=== PATIENT | female | born 1940 | race Caucasian/White ===

== ENCOUNTER 2016-12-02 04:36 | Emergency (ER) | payer MEDICARE, MEDICAID ==
[2016-12-02] MEDS ORDERED: Diphtheria,Pertussis(Acell),Tetanus Vaccine 0.5 ML SDV IM ONE (05:12)
--- NOTE | 2016-12-02 05:14 | EDM.PDOC ---
ED HPI GENERAL MEDICAL PROBLEM - General Stated Complaint: LACERATION ON FOREHEAD Time Seen by Provider: 12/02/16 04:36 Source of Information: Reports: Patient, Police History Limitations: Reports: No Limitations - History of Present Illness INITIAL COMMENTS - FREE TEXT/NARRATIVE: 76 y.o.w.f came to the ed after she fell onto her forehead while getting out of her bed to the bathroom. Pt came by the police because she did not find the way to the ED. Pt smokes daily and has COPD. No LOC. Pt noticed some blood at here forehead. As she arrived here in the ed, the bleeding stopped. Pt denied other acute medical issues. Onset: Today Onset Date: 12/02/16 Onset Time: 02:00 Duration: Minutes:, Getting Worse Location: Reports: Head, Face Quality: Reports: Burning Severity: Mild Improves with: Reports: Cold Therapy, Rest Worsens with: Reports: Movement Context: Reports: Trauma Associated Symptoms: Reports: No Other Symptoms ED ROS GENERAL - Review of Systems Review Of Systems: See Below Constitutional: Reports: No Symptoms HEENT: Reports: No Symptoms Respiratory: Reports: Other (has COPD, refuses Tx) Cardiovascular: Reports: No Symptoms Endocrine: Reports: No Symptoms GI/Abdominal: Reports: No Symptoms : Reports: No Symptoms Musculoskeletal: Reports: No Symptoms Skin: Reports: Wound (scalp/forehead) Neurological: Reports: No Symptoms Psychiatric: Reports: No Symptoms Hematologic/Lymphatic: Reports: No Symptoms Immunologic: Reports: No Symptoms ED EXAM, SKIN/RASH Exam: See Below Exam Limited By: No Limitations General Appearance: Alert, WD/WN, No Apparent Distress Eye Exam: Bilateral Eye: Normal Inspection Ears: Normal External Exam, Normal Canal Nose: Normal Inspection, Normal Mucosa, No Blood Throat/Mouth: Normal Inspection, Normal Lips Head: Other (full thickness LAC forehead/capo) Neck: Normal Inspection, Supple, Non-Tender, Full Range of Motion Respiratory/Chest: No Respiratory Distress, Wheezing, Prolonged Expiration (pt refused Tx) Cardiovascular: Normal Peripheral Pulses, Regular Rate, Rhythm, No Edema, No Gallop Peripheral Pulses: 1+: Femoral (L), Femoral (R) GI/Abdominal: Normal Bowel Sounds, Soft, Non-Tender (Female) Exam: Deferred Rectal (Female) Exam: Deferred Back Exam: Normal Inspection, Full Range of Motion Extremities: Normal Inspection, Normal Range of Motion, Non-Tender Neurological: Alert, Oriented, CN II-XII Intact, Normal Cognition, Normal Gait Psychiatric: Normal Affect, Normal Mood Skin: Warm, Dry, Other (Laceration forehead/scalp) Location, Skin: Head, Face Lymphatic: No Adenopathy ED SKIN PROCEDURES - Laceration/Wound Repair Middle Forehead Lac/Wound length In cm: 5 Appearance: Subcutaneous, Linear, Clean Distal NVT: Neuro & Vascular Intact, No Tendon Injury Anesthetic Type: Local Local Anesthesia - Lidocaine (Xylocaine): 2% Plain Local Anesthetic Volume: 4cc Skin Prep: Providone-Iodine (Betadine) Exploration/Debridement/Repair: Wound Explored, In a Bloodless Field, Explored to Base, No Foreign Material Found Closed with: [place] # of Sutures: 15 Suture Type: Interrupted Tetanus Status Addressed: Other (has received a TD booster at this visit.) Complications: No Course - Vital Signs Text/Narrative:: 76 y.o.w.f came to the ed after she fell onto her forehead while getting out of her bed to the bathroom. Pt came by the police because she did not find the way to the ED. Pt smokes daily and has COPD. No LOC. Pt noticed some blood at here forehead. As she arrived here in the ed, the bleeding stopped. Pt denied other acute medical issues. PE: Scalp/forehead LAC, exp. wheezes Imaging: not indicated Procedure: Please see note above Impression: Scalp Laeration, COPD Tx: Wound repair, Pt refused Tx of COPD Reexam: Improved Plan: D/C with instructions - Orders/Labs/Meds Orders: Active Orders 24 hr Category Date Time Status Vaccines to be Administered [RC] PER UNIT ROUTINE Care 12/02/16 05:12 Ordered Meds: Medications Discontinued Medications Generic Name Dose Route Start Last Admin Trade Name Freq PRN Reason Stop Dose Admin Diphtheria/Tetanus/Acell Pertussis 0.5 ml 12/02/16 05:12 12/02/16 05:30 Adacel IM 12/02/16 05:13 0.5 ml .ONCE ONE Administration Departure - Departure Time of Disposition: 05:16 Disposition: Home, Self-Care 01 Condition: Good Clinical Impression: Laceration of head Qualifiers: Encounter type: initial encounter Location of open wound of head: scalp Foreign body presence: without foreign body Qualified Code(s): S01.01XA - Laceration without foreign body of scalp, initial encounter - Discharge Information Referrals: PCP,Not In Area [Primary Care Provider] - Additional Instructions: Please apply pressure and ICE to affected area for next 24 hours, please come back to the ed this tuesday, please come back if your symptoms get worse acutely. - My Orders Last 24 Hours: My Active Orders 12/02/16 05:12 Vaccines to be Administered [RC] PER UNIT ROUTINE - Assessment/Plan Last 24 Hours: My Active Orders 12/02/16 05:12 Vaccines to be Administered [RC] PER UNIT ROUTINE
[2016-12-02 05:42] VITALS: BP 159/87
== END 2016-12-02 05:35 | disposition home or self-care (01) ==
LOC: FB.ED 04:36
DX: S01.81XA Laceration without foreign body of other part of head, initial encounter (principal); W19.XXXA Unspecified fall, initial encounter; Y92.009 Unspecified place in unspecified non-institutional (private) residence as the place of occurrence of the external cause
CPT/HCPCS: 12013; 90471; 90715; 99282; 99283

== ENCOUNTER 2016-12-03 10:51 | Emergency (ER) | payer MEDICARE, MEDICAID ==
[2016-12-03] MEDS ORDERED: Bacitracin/Neomycin/Polymyxin B Oint 0.9 GM U/D Packet TOP STA (11:02)
--- NOTE | 2016-12-03 11:09 | EDM.PDOC ---
ED HPI GENERAL MEDICAL PROBLEM - General Stated Complaint: HEAD INJURY Time Seen by Provider: 12/03/16 10:51 Source of Information: Reports: Patient, Family - History of Present Illness INITIAL COMMENTS - FREE TEXT/NARRATIVE: 76 years old w f came to the ed for wound check. wound repair was performed on . there ie no bleed, no tenderness, no redness, Pt denies dizziness, lightheadedness or any other acute medical issues. Onset: Unknown/Unsure Onset Date: 12/01/16 Onset Time: 04:00 Duration: Day(s): Location: Reports: Head, Face Quality: Reports: Dull Improves with: Reports: Other (neosporine) Context: Reports: Trauma (fall.) Associated Symptoms: Reports: No Other Symptoms - Related Data Allergies Allergy/AdvReac Type Severity Reaction Status Date / Time morphine Allergy Other Verified 12/02/16 06:24 Home Meds: Home Meds . [Unable to Verify Home Med List] 12/02/16 [History] Past Medical History Cardiovascular History: Reports: Pacemaker Respiratory History: Reports: COPD Musculoskeletal History: Reports: Fibromyalgia Endocrine/Metabolic History: Reports: Other (See Below) Other Endocrine/Metabolic History: Patient denies having diabetes. Social & Family History - Tobacco Use Smoking Status *Q: Current Every Day Smoker Years of Tobacco use: 50 Packs/Tins Daily: 0.5 ED ROS GENERAL - Review of Systems Review Of Systems: See Below Constitutional: Reports: No Symptoms HEENT: Reports: No Symptoms Respiratory: Reports: No Symptoms Cardiovascular: Reports: No Symptoms Endocrine: Reports: No Symptoms GI/Abdominal: Reports: No Symptoms : Reports: No Symptoms Musculoskeletal: Reports: No Symptoms Skin: Reports: No Symptoms, Wound (mid forehead/capo) Neurological: Reports: No Symptoms Psychiatric: Reports: No Symptoms Hematologic/Lymphatic: Reports: No Symptoms Immunologic: Reports: No Symptoms ED EXAM, SKIN/RASH Exam: See Below Exam Limited By: No Limitations General Appearance: Alert, WD/WN, No Apparent Distress Eye Exam: Bilateral Eye: Normal Inspection Ears: Normal External Exam, Normal Canal Nose: Normal Inspection, Normal Mucosa, No Blood Throat/Mouth: Normal Inspection, Normal Lips Head: Normocephalic, Other (s/p wound repair 12/01/2016, well healing surgical wound, no erythema, no tenderness) Neck: Normal Inspection, Supple, Non-Tender Respiratory/Chest: Lungs Clear, Wheezing (pt refused Tx), Prolonged Expiration Cardiovascular: Normal Peripheral Pulses Peripheral Pulses: 2+: Femoral (L), Femoral (R) GI/Abdominal: Normal Bowel Sounds (Female) Exam: Deferred Rectal (Female) Exam: Deferred Back Exam: Normal Inspection Extremities: Normal Inspection Neurological: Alert, Oriented, CN II-XII Intact, Normal Cognition, Normal Gait Psychiatric: Normal Affect, Normal Mood Skin: Warm, Dry, Wound/Incision (well healing wound mid forehead/capo s/p repair 12/01/2016) Lymphatic: No Adenopathy Course - Vital Signs Text/Narrative:: 76 years old w f came to the ed for wound check. wound repair was performed on . there ie no bleed, no tenderness, no redness, Pt denies dizziness, lightheadedness or any other acute medical issues. PE: Well healing wound mif forehead/scalp Impression: Wound check Tx: Neosporine to wound Reexam: Improved Plan: D/C to home - Orders/Labs/Meds Meds: Medications Discontinued Medications Generic Name Dose Route Start Last Admin Trade Name Freq PRN Reason Stop Dose Admin Neomycin/Polymyxin/Bacitracin 1 each 12/03/16 11:02 Triple Antibiotic Oint TOP 12/03/16 11:03 ONETIME STA Departure - Departure Time of Disposition: 11:14 Disposition: Home, Self-Care 01 Condition: Good Clinical Impression: Visit for wound check - Discharge Information Referrals: PCP,None [Primary Care Provider] - Additional Instructions: Please apply any Tripleantibiotics to wound twice daily, please f/u Stable removal in 10 days, please come back if your symptoms get worse acutely.
[2016-12-03 11:36] VITALS: BP 128/64
== END 2016-12-03 11:19 | disposition home or self-care (01) ==
LOC: FB.ED 10:51
DX: S01.81XD Laceration without foreign body of other part of head, subsequent encounter (principal); J44.9 Chronic obstructive pulmonary disease, unspecified; F17.210 Nicotine dependence, cigarettes, uncomplicated; Z88.5 Allergy status to narcotic agent; Z95.0 Presence of cardiac pacemaker; W06.XXXD Fall from bed, subsequent encounter
CPT/HCPCS: 99282

== ENCOUNTER 2021-01-16 20:13 | Emergency (ER) | payer MEDICARE, MEDICAID ==
--- NOTE | 2021-01-16 23:00 | EDM.PDOC ---
ED HPI GENERAL MEDICAL PROBLEM - General Chief Complaint: Abdominal Pain Stated Complaint: Abdominal Pain Time Seen by Provider: 01/16/21 21:00 Source of Information: Reports: Patient - History of Present Illness INITIAL COMMENTS - FREE TEXT/NARRATIVE: 80-year-old lady with an extensive and significant past medical history came to the emergency department for evaluation of abdominal pain. She states that she had endoscopy performed on 01/07/2021 and has had increasing pain ever since. It is difficult to communicate with her because she is hard of hearing but she states that the abdominal pain has gotten to the point where it is so severe that she cannot rest or sleep well. She describes the pain at different times in every quadrant. She states that she came to the emergency department because the nurses that worked in the facility where she had the endoscopy told her that she should come immediately because of her symptoms. Of her extensive past medical history review of systems is difficult because she answers yes to almost everything. - Related Data Allergies Allergy/AdvReac Type Severity Reaction Status Date / Time fluoxetine [From Prozac] Allergy Cannot Verified 01/16/21 23:07 Remember heparin Allergy Cannot Verified 01/16/21 23:06 Remember morphine Allergy Cannot Verified 01/16/21 20:53 Remember nortriptyline Allergy Cannot Verified 01/16/21 23:07 Remember oxycodone [From OxyContin] Allergy Cannot Verified 01/16/21 20:53 Remember Home Meds: Home Meds Acetaminophen [Tylenol Arthritis Pain] 650 mg PO Q8H PRN 01/16/21 [History] Albuterol Sulfate [Albuterol Sulfate Hfa] 1 - 2 puff INH Q4H PRN 01/16/21 [History] Albuterol [Proventil Neb Soln] 3 ml INH QID PRN 01/16/21 [History] Amitriptyline [Elavil] 25 mg PO BEDTIME 01/16/21 [History] Budesonide/Formoterol [Symbicort 160-4.5 MCG] 2 puff INH BID 01/16/21 [History] Clobetasol [Temovate 0.05% Oint] 1 applic TOP DAILY PRN 01/16/21 [History] Escitalopram [Lexapro] 10 mg PO DAILY 01/16/21 [History] Estrogens, Conjugated [Premarin Vaginal Crm] 1 applic VAG Q3D 01/16/21 [History] Metoprolol Tartrate [Lopressor] 50 mg PO BID 01/16/21 [History] Nitroglycerin [Nitrostat] 0.4 mg SL ASDIRECTED PRN 01/16/21 [History] Pregabalin 200 mg PO TID 01/16/21 [History] Rivaroxaban [Xarelto] 10 mg PO WITHDINNER 01/16/21 [History] Simvastatin 40 mg PO DAILY 01/16/21 [History] Sucralfate 1 gm PO QID 01/16/21 [History] Triamcinolone Acetonide [Kenalog 0.1% Crm] 1 applic TOP BID PRN 01/16/21 [History] Umeclidinium [place] [Incruse Ellipta*] 1 puff IH DAILY 01/16/21 [History] lisinopriL [Lisinopril] 10 mg PO DAILY 01/16/21 [History] Past Medical History HEENT History: Reports: Hard of Hearing Cardiovascular History: Reports: Pacemaker, Other (See Below) Other Cardiovascular History: 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 Respiratory History: Reports: Asthma, COPD, SOB Gastrointestinal History: Reports: Other (See Below) Other Gastrointestinal History: Abdominal pain. Musculoskeletal History: Reports: Fibromyalgia Endocrine/Metabolic History: Reports: Other (See Below) Other Endocrine/Metabolic History: Patient denies having diabetes. - Past Surgical History GI Surgical History: Reports: Appendectomy, Cholecystectomy, EGD Musculoskeletal Surgical History: Reports: Shoulder Surgery, Other (See Below) Other Musculoskeletal Surgeries/Procedures:: States left and right shoulder surgery. Dermatological Surgical History: Reports: Other (See Below) Social & Family History - Tobacco Use Years of Tobacco use: 50 Packs/Tins Daily: 1 - Caffeine Use Caffeine Use: Reports: Coffee ED ROS GENERAL - Review of Systems Review Of Systems: See Below Constitutional: Reports: Malaise, Weakness, Fatigue, Decreased Appetite HEENT: Reports: No Symptoms Respiratory: Reports: Shortness of Breath, Wheezing Cardiovascular: Reports: Dyspnea on Exertion, Edema Endocrine: Reports: Fatigue GI/Abdominal: Reports: Abdominal Pain, Anorexia, Nausea : Reports: No Symptoms Musculoskeletal: Reports: Joint Pain, Muscle Pain Skin: Reports: No Symptoms Neurological: Reports: Dizziness, Headache, Difficulty Walking, Weakness Psychiatric: Reports: Anxiety, Depression Hematologic/Lymphatic: Reports: No Symptoms Immunologic: Reports: No Symptoms ED EXAM, GI/ABD - Physical Exam Exam: See Below Exam Limited By: Other (Patient is hard of hearing and a poor historian) General Appearance: Alert, Anxious, Mild Distress Respiratory/Chest: Decreased Breath Sounds, Crackles, Wheezing Cardiovascular: Systolic Murmur. No: Regular Rate, Rhythm GI/Abdominal Exam: Normal Bowel Sounds, Tender. No: Rigid, Rebound Rectal (Female) Exam: Normal Rectal Tone, Hemorrhoids Back Exam: Normal Inspection Extremities: Pedal Edema Neurological: Alert, Oriented, CN II-XII Intact Psychiatric: Anxious Skin Exam: Warm, Dry Course - Vital Signs Text/Narrative:: Guaiac negative, CT abdomen and pelvis with contrast negative. Review of past medical records shows that patient's hemoglobin was 12.3 with an MCV of 87.9 on 10/22/2019. Note that her MCV was previously 97.6. Hemoglobin was 10.8 with an MCV not measured on 12/02/2020. Hemoglobin today was 9.7 with MCV of 73.9. He also had elevated red cell distribution with of 19.3. Last Recorded V/S: Last Vital Signs Temp 35.7 C L 01/16/21 20:25 Pulse 74 01/16/21 20:25 Resp 18 01/16/21 20:25 BP 160/68 H 01/16/21 20:25 Pulse Ox 96 01/16/21 20:25 - Orders/Labs/Meds Orders: Active Orders 24 hr Category Date Time Status CULTURE URINE [RM] Stat Lab 01/16/21 20:20 Received Guaiac [OCCULT BLOOD DIAGNOSTIC] [OP] Stat Lab 01/16/21 22:48 Ordered Labs: Laboratory Tests 01/16/21 01/16/21 01/16/21 Range/Units 20:20 22:08 22:08 WBC 7.9 (3.0-10.3) x10-3/uL RBC 4.35 (3.60-5.20) x10(6)uL Hgb 9.7 L (11.4-15.5) g/dL Hct 32.1 L (34.2-48.2) % MCV 73.9 L (76.7-100.5) fL MCH 22.4 L (23.9-33.9) pg MCHC 30.3 L (31.9-34.8) g/dL RDW 19.3 H (12.3-16.5) % Plt Count 243 (151-488) x10(3)uL MPV 8.1 (7.1-12.4) fL Neut % (Auto) 67.5 (30.8-76.2) % Lymph % (Auto) 22.2 (18.4-52.1) % Ness % (Auto) 9.3 (4.4-15.7) % Eos % (Auto) 0.3 L (0.6-8.1) % Baso % (Auto) 0.7 (0.2-1.5) % Neut # (Auto) 5.3 (1.5-6.3) x10-3/uL Lymph # (Auto) 1.8 (1.0-4.4) x10-3/uL Ness # (Auto) 0.7 (0.3-1.0) x10-3/uL Eos # (Auto) 0.0 (0.0-0.8) x10-3/uL Baso # (Auto) 0.1 (0.0-0.1) x10-3/uL Sodium 141 (135-145) mmol/L Potassium 4.4 (3.5-5.3) mmol/L Chloride 104 (100-110) mmol/L Carbon Dioxide 27 (21-32) mmol/L BUN 24 H (7-18) mg/dL Creatinine 1.1 H (0.55-1.02) mg/dL Est Cr Clr Drug Dosing 29.30 mL/min Estimated GFR (MDRD) 48 L (>60) BUN/Creatinine Ratio 21.8 H (9-20) Glucose 104 (80-116) mg/dL Calcium 8.9 (8.6-10.2) mg/dL Total Bilirubin 1.4 H (0.1-1.3) mg/dL AST 19 (5-25) IU/L ALT 25 (12-36) U/L Alkaline Phosphatase 42 L (56-112) IU/L Total Protein 6.7 (6.0-8.0) g/dL Albumin 3.3 (3.2-4.6) g/dL Globulin 3.4 g/dL Albumin/Globulin Ratio 1.0 Urine Color Yellow (YELLOW) Urine Appearance Slightly cloudy (CLEAR) Urine pH 5.0 (5.0-6.5) Ur Specific [place] 1.025 (1.010-1.025) Urine Protein Negative (NEGATIVE) mg/dL Urine Glucose (UA) Normal (NORMAL) mg/dL Urine Ketones Negative (NEGATIVE) mg/dL Urine Occult Blood Moderate H (NEGATIVE) Urine Nitrite Negative (NEGATIVE) Urine Bilirubin Negative (NEGATIVE) Urine Urobilinogen Normal (NEGATIVE) mg/dL Ur Leukocyte Esterase Large H (NEGATIVE) Urine RBC 5-10 H (0-5) Urine WBC 10-20 H (0-5) Ur Squamous Epith Cells Moderate H (NS,R,O) Urine Bacteria Few H (NS) Urine Yeast Rare H (NS) Departure - Departure Time of Disposition: 00:29 Disposition: Home, Self-Care 01 Condition: Fair Clinical Impression: Microcytic anemia, Abdominal pain - Discharge Information *PRESCRIPTION DRUG MONITORING PROGRAM REVIEWED*: Not Applicable *COPY OF PRESCRIPTION DRUG MONITORING REPORT IN PATIENT AMBROSE: Not Applicable Instructions: Iron Deficiency Anemia, Adult, [id number], Abdominal Pain, Adult, [id number], Anemia Referrals: Romi Bright PA-C [Primary Care Provider] - Additional Instructions: Your medication list from [facility] indicates that you should be taking Carafate 4 times a day. You will need to follow-up with the surgeon that performed your EGD, Dr. Henning or Dr. Prieto as soon as possible to determine if you are on all of the medications that they intend for you to take. Please follow-up with your primary care physician and inform that physician that your hemoglobin/hematocrit has been steadily dropping as well as your mean corpuscular volume and that you are now in a state of microcytic anemia. You were normal approximately 14 months ago. If you experience chest pain, shortness of breath, dizziness or any other severe symptoms, please come to the emergency department immediately. Sepsis Event Note (ED) - Focused Exam Vital Signs: Vital Signs Temp Pulse Resp BP Pulse Ox 01/16/21 20:25 35.7 C L 74 18 160/68 H 96 - My Orders Last 24 Hours: My Active Orders 01/16/21 20:20 CULTURE URINE [RM] Stat 01/16/21 22:48 Guaiac [OCCULT BLOOD DIAGNOSTIC] [OP] Stat - Assessment/Plan Last 24 Hours: My Active Orders 01/16/21 20:20 CULTURE URINE [RM] Stat 01/16/21 22:48 Guaiac [OCCULT BLOOD DIAGNOSTIC] [OP] Stat
[2021-01-16] MEDS: Iopamidol 755 Mg/ML 75 ML Bottle IV ONE (23:37)
[2021-01-17 01:23] VITALS: BP 167/73; PULSE 68
== END 2021-01-17 00:45 | disposition home or self-care (01) ==
LOC: FB.ED 20:13
DX: R10.9 Unspecified abdominal pain (principal); D50.9 Iron deficiency anemia, unspecified; J44.9 Chronic obstructive pulmonary disease, unspecified; Z72.0 Tobacco use; Z88.5 Allergy status to narcotic agent; Z88.8 Allergy status to other drugs, medicaments and biological substances; Z79.899 Other long term (current) drug therapy; Z79.01 Long term (current) use of anticoagulants
CPT/HCPCS: 36415; 74177; 80053; 81001; 82272; 85025; 87086; 99284; Q9967

== ENCOUNTER 2021-05-11 09:34 | Observation (INO) | payer MEDICARE, MEDICAID ==
[2021-05-11] MEDS ORDERED: Sodium Chloride 0.9% 1,000 ML IV ONE (10:02)
[2021-05-11] MEDS ORDERED: Ondansetron 4 MG/2 ML SDV IVPUSH ONE (10:03)
[2021-05-11 11:05] LABS: CORONAVIRUS COVID-19 NAA NEGATIVE (NEGATIVE)
[2021-05-11] MEDS ORDERED: Nitroglycerin 0.4 MG Tab.SL SL PRN (14:04)
[2021-05-11] MEDS ORDERED: Albuterol 0.083% 2.5 MG/3 ML Neb Soln INH PRN (14:04)
[2021-05-11] MEDS ORDERED: Zolpidem 5 MG Tab PO PRN (14:12)
[2021-05-11] MEDS ORDERED: Acetaminophen 325 MG Tab PO PRN (14:12)
[2021-05-11] MEDS ORDERED: Polyethylene Glycol 3350 Powder 238 GM Bot *PTOM PO ONE ×2 (14:15)
[2021-05-11] MEDS: Dextrose 5%-0.45% NaCl 1,000 ML IV SCH (14:35)
[2021-05-11] MEDS: Sucralfate 1 GM Tab *PTOM PO SCH ×2 (17:11→20:33)
[2021-05-11] MEDS: STIOLTO RESPIMAT INH SCH (20:35)
[2021-05-11] MEDS: Pregabalin 100 MG Cap PO SCH (20:41)
[2021-05-11] MEDS: Ondansetron 4 MG/2 ML SDV IV PRN (20:42)
[2021-05-11] MEDS: Sodium Chloride 0.9% 10 ML Syringe FLUSH PRN (20:50)
[2021-05-11] MEDS ORDERED: Amitriptyline 25 MG Tab PO SCH (21:00)
[2021-05-12] MEDS: Ondansetron 4 MG/2 ML SDV IV PRN (00:23)
[2021-05-12] MEDS: Sodium Chloride 0.9% 10 ML Syringe FLUSH PRN (00:25)
[2021-05-12] MEDS: Dextrose 5%-0.45% NaCl 1,000 ML IV SCH (02:57)
[2021-05-12] MEDS: STIOLTO RESPIMAT INH SCH (08:42)
[2021-05-12] MEDS: Sucralfate 1 GM Tab *PTOM PO SCH ×2 (08:52→13:47)
[2021-05-12] MEDS ORDERED: Simvastatin 40 MG Tab *PTOM PO SCH (09:00)
[2021-05-12] MEDS ORDERED: Escitalopram 10 MG Tab *PTOM PO SCH (09:00)
[2021-05-12] MEDS ORDERED: Lisinopril 10 MG Tab *PTOM PO SCH (09:00)
[2021-05-12 12:06] VITALS: PULSE 60
[2021-05-12] MEDS: Pregabalin 100 MG Cap PO SCH ×2 (13:51→13:53)
[2021-05-12] MEDS ORDERED: Lidocaine 2% 5 ML SDV INJECT ONE (14:04)
[2021-05-12] MEDS ORDERED: Propofol 200 MG/20 ML SDV IV ONE (14:04)
[2021-05-12 18:11] VITALS: BP 127/61
== END 2021-05-12 14:05 | disposition home or self-care (01) ==
LOC: FB.ED 09:34 → SUPCPDRO 09:34 → FB.MS 13:18
PROVIDERS: ADMIT Emergency Medicine; ATTEND Family Medicine
DX: K29.50 Unspecified chronic gastritis without bleeding (principal); K63.5 Polyp of colon; E86.0 Dehydration; R11.0 Nausea; I48.92 Unspecified atrial flutter; I50.9 Heart failure, unspecified; J44.9 Chronic obstructive pulmonary disease, unspecified; Z88.8 Allergy status to other drugs, medicaments and biological substances; Z88.5 Allergy status to narcotic agent; Z79.899 Other long term (current) drug therapy; Z90.49 Acquired absence of other specified parts of digestive tract; Z98.890 Other specified postprocedural states; F17.210 Nicotine dependence, cigarettes, uncomplicated; F41.9 Anxiety disorder, unspecified; R79.82 Elevated C-reactive protein (CRP); Z95.0 Presence of cardiac pacemaker; Z20.822 Contact with and (suspected) exposure to COVID-19
CPT/HCPCS: 00813; 0240U; 36415; 43239; 45384; 71046; 74018; 80048; 80053; 81001; 83690; 83735; 83880; 84443; 84484; 85025; 86140; 88305; 88342; 93005; 93010; 94640; 96374; 96376; 99219; 99225; 99285; A9270; G0378; J2405; J2704; J7030; J7042

== ENCOUNTER 2023-12-18 09:00 | Emergency (ER) | payer MEDICARE, MEDICAID ==
[2023-12-18 09:14] VITALS: BP 109/76; PULSE 78
[2023-12-18] MEDS ORDERED: Sodium Chloride 0.9% 10 ML Syringe FLUSH PRN (09:49)
[2023-12-18] MEDS: Ketorolac 15 MG/ML SDV IVPUSH ONE (09:56)
[2023-12-18] MEDS: Sodium Chloride 0.9% 1,000 ML IV ONE ×2 (09:56→11:03)
[2023-12-18] MEDS: LORazepam 2 MG/ML SDV IVPUSH ONE (09:56)
[2023-12-18 09:57] LABS: BASOPHILS PERCENT AUTO 0.5 % (0.2-1.5); EOSINOPHILS PERCENT AUTO 0.2 % (0.6-8.1); HEMATOCRIT 40.7 % (34.2-48.2); HEMOGLOBIN 13.7 g/dL (11.4-15.5); LYMPHOCYTES ABSOLUTE AUTO 1.3 x10-3/uL (1.0-4.4); LYMPHOCYTES PERCENT AUTO 17.3 % (18.4-52.1); MEAN CORPUSCULAR HGB CONC 33.7 g/dL (31.9-34.8); MEAN CORPUSCULAR VOLUME 94.9 fL (76.7-100.5); MEAN PLATELET VOLUME 9.3 fL (7.1-12.4); MONOCYTES ABSOLUTE AUTO 0.7 x10-3/uL (0.3-1.0); MONOCYTES PERCENT AUTO 9.1 % (4.4-15.7); NEUTROPHILS ABSOLUTE AUTO 5.5 x10-3/uL (1.5-6.3); NEUTROPHILS PERCENT AUTO 72.9 % (30.8-76.2); PLATELET COUNT,PLT 217 x10(3)uL (151-488); RED BLOOD CELL COUNT 4.29 x10(6)uL (3.60-5.20); RED CELL DISTRIBUTION WIDTH 14.6 % (12.3-16.5); WHITE BLOOD CELL COUNT,WBC 7.6 x10-3/uL (3.0-10.3)
[2023-12-18] MEDS: Cyclobenzaprine 10 MG Tab PO ONE (09:57)
[2023-12-18 10:11] LABS: LACTIC ACID 1.1 mmol/L (0.4-2.0)
[2023-12-18 10:15] LABS: A/G RATIO 0.7; ALANINE AMINOTRANSFERASE,ALT 20 U/L (12-36); ALKALINE PHOSPHATASE 42 IU/L (56-112); ASPARTATE AMNIOTRANSFERASE,AST 22 IU/L (5-25); BILIRUBIN TOTAL 1.3 mg/dL (0.1-1.3); BLOOD UREA NITROGEN,BUN 40 mg/dL (7-18); CALCIUM 9.1 mg/dL (8.6-10.2); CARBON DIOXIDE,CO2 30 mmol/L (21-32); CHLORIDE,CL 99 mmol/L (100-110); ESTIMATED GFR 23 mL/min (>60); GLUCOSE RANDOM 104 mg/dL (80-116); PROTEIN TOTAL,TP 7.1 g/dL (6.0-8.0); SODIUM,NA 137 mmol/L (135-145)
[2023-12-18 10:16] LABS: CREATINE KINASE,CK 322 IU/L (60-160); CREATININE 2.1 mg/dL (0.55-1.02)
== END 2023-12-18 16:09 | disposition home or self-care (01) ==
LOC: FB.ED 09:00
DX: M62.830 Muscle spasm of back (principal); J44.9 Chronic obstructive pulmonary disease, unspecified; Z88.8 Allergy status to other drugs, medicaments and biological substances; Z88.5 Allergy status to narcotic agent; Z79.51 Long term (current) use of inhaled steroids; Z79.01 Long term (current) use of anticoagulants; Z79.899 Other long term (current) drug therapy; Z95.0 Presence of cardiac pacemaker; Z90.49 Acquired absence of other specified parts of digestive tract
CPT/HCPCS: 36415; 80053; 82550; 83605; 85025; 96361; 96374; 96375; 99284; A9270; J1885; J2060; J7030

== ENCOUNTER 2024-03-12 14:18 | Emergency (ER) | payer MEDICARE, MEDICAID ==
[2024-03-12 15:03] LABS: BASOPHILS PERCENT AUTO 0.7 % (0.2-1.5); EOSINOPHILS PERCENT AUTO 0.7 % (0.6-8.1); HEMATOCRIT 40.2 % (34.2-48.2); HEMOGLOBIN 13.3 g/dL (11.4-15.5); LYMPHOCYTES ABSOLUTE AUTO 1.4 x10-3/uL (1.0-4.4); LYMPHOCYTES PERCENT AUTO 20.4 % (18.4-52.1); MEAN CORPUSCULAR HEMOGLOBIN 31.8 pg (23.9-33.9); MEAN CORPUSCULAR VOLUME 96.4 fL (76.7-100.5); MEAN PLATELET VOLUME 8.6 fL (7.1-12.4); MONOCYTES ABSOLUTE AUTO 0.6 x10-3/uL (0.3-1.0); MONOCYTES PERCENT AUTO 9.7 % (4.4-15.7); NEUTROPHILS ABSOLUTE AUTO 4.5 x10-3/uL (1.5-6.3); NEUTROPHILS PERCENT AUTO 68.5 % (30.8-76.2); PLATELET COUNT,PLT 197 x10(3)uL (151-488); RED BLOOD CELL COUNT 4.17 x10(6)uL (3.60-5.20); RED CELL DISTRIBUTION WIDTH 15.8 % (12.3-16.5); WHITE BLOOD CELL COUNT,WBC 6.6 x10-3/uL (3.0-10.3)
[2024-03-12 15:10] LABS: BLOOD UREA NITROGEN,BUN 14 mg/dL (7-18); BUN/CREATININE RATIO 10.8 (9-20); CALCIUM 9.3 mg/dL (8.6-10.2); CARBON DIOXIDE,CO2 34 mmol/L (21-32); CHLORIDE,CL 104 mmol/L (100-110); CREATININE 1.3 mg/dL (0.55-1.02); ESTIMATED GFR 41 mL/min (>60); GLUCOSE RANDOM 103 mg/dL (80-116); POTASSIUM,K 3.9 mmol/L (3.5-5.3); SODIUM,NA 141 mmol/L (135-145)
[2024-03-12 15:16] LABS: ALANINE AMINOTRANSFERASE,ALT 31 U/L (12-36); ALBUMIN 3.4 g/dL (3.2-4.6); ALKALINE PHOSPHATASE 41 IU/L (56-112); ASPARTATE AMNIOTRANSFERASE,AST 17 IU/L (5-25); BILIRUBIN TOTAL 1.2 mg/dL (0.1-1.3); PROTEIN TOTAL,TP 6.8 g/dL (6.0-8.0)
[2024-03-12 15:25] LABS: TROPONIN I 13.9 pg/mL (4.0-60.3)
[2024-03-12 16:04] LABS: BILIRUBIN,URINE NEGATIVE (NEGATIVE); GLUCOSE,URINE NORMAL (NORMAL); KETONES,URINE NEGATIVE (NEGATIVE); LEUKOCYTE ESTERASE,URINE NEGATIVE (NEGATIVE); NITRITE,URINE NEGATIVE (NEGATIVE); OCCULT BLOOD,URINE NEGATIVE (NEGATIVE); PH,URINE 6.5 (5.0-6.5); PROTEIN,URINE NEGATIVE (NEGATIVE); UROBILINOGEN,URINE NORMAL (NEGATIVE)
[2024-03-12 16:06] LABS: APPEARANCE,URINE CLEAR (CLEAR); COLOR,URINE YELLOW (YELLOW)
[2024-03-12] MEDS: Furosemide 40 MG/4 ML VIAL IVPUSH ONE (16:06)
[2024-03-12 18:42] VITALS: BP 133/61; PULSE 61
== END 2024-03-12 18:42 | disposition home or self-care (01) ==
LOC: FB.ED 14:18
DX: I13.0 Hypertensive heart and chronic kidney disease with heart failure and stage 1 through stage 4 chronic kidney disease, or unspecified chronic kidney disease (principal); E11.22 Type 2 diabetes mellitus with diabetic chronic kidney disease; N18.9 Chronic kidney disease, unspecified; I50.9 Heart failure, unspecified; N17.9 Acute kidney failure, unspecified; E11.40 Type 2 diabetes mellitus with diabetic neuropathy, unspecified; Z90.49 Acquired absence of other specified parts of digestive tract; Z88.8 Allergy status to other drugs, medicaments and biological substances; Z88.5 Allergy status to narcotic agent
CPT/HCPCS: 36415; 71045; 80053; 81003; 83880; 84484; 85025; 93005; 96374; 99285; J1940; U0002

== ENCOUNTER 2024-06-05 15:07 | Inpatient (IN) | payer MEDICARE, MEDICAID ==
[2024-06-05] MEDS ORDERED: Morphine 4 MG/ML VIAL IVPUSH ONE (16:47)
[2024-06-05] MEDS ORDERED: Naloxone 0.4 MG/ML SDV IVPUSH PRN (17:04)
[2024-06-05 17:07] LABS: BASOPHILS ABSOLUTE AUTO 0.1 x10-3/uL (0.0-0.1); BASOPHILS PERCENT AUTO 0.7 % (0.2-1.5); EOSINOPHILS PERCENT AUTO 0.6 % (0.6-8.1); HEMATOCRIT 40.6 % (34.2-48.2); HEMOGLOBIN 13.5 g/dL (11.4-15.5); LYMPHOCYTES ABSOLUTE AUTO 1.5 x10-3/uL (1.0-4.4); LYMPHOCYTES PERCENT AUTO 20.1 % (18.4-52.1); MEAN CORPUSCULAR HEMOGLOBIN 32.3 pg (23.9-33.9); MEAN CORPUSCULAR HGB CONC 33.3 g/dL (31.9-34.8); MEAN CORPUSCULAR VOLUME 96.9 fL (76.7-100.5); MEAN PLATELET VOLUME 8.9 fL (7.1-12.4); MONOCYTES ABSOLUTE AUTO 0.7 x10-3/uL (0.3-1.0); MONOCYTES PERCENT AUTO 9.1 % (4.4-15.7); NEUTROPHILS ABSOLUTE AUTO 5.1 x10-3/uL (1.5-6.3); NEUTROPHILS PERCENT AUTO 69.5 % (30.8-76.2); PLATELET COUNT,PLT 201 x10(3)uL (151-488); RED BLOOD CELL COUNT 4.19 x10(6)uL (3.60-5.20); RED CELL DISTRIBUTION WIDTH 14.2 % (12.3-16.5); WHITE BLOOD CELL COUNT,WBC 7.3 x10-3/uL (3.0-10.3)
[2024-06-05 17:10] LABS: CARBON DIOXIDE,CO2 31 mmol/L (21-32); CHLORIDE,CL 105 mmol/L (100-110); POTASSIUM,K 4.5 mmol/L (3.5-5.3); SODIUM,NA 141 mmol/L (135-145)
[2024-06-05 17:11] LABS: BASE EXCESS VENOUS,POC 2 mmol/L (-2 - 3+); PCO2 VENOUS,POC 61 mmHg (41-51)
[2024-06-05 17:11] LABS: BLOOD UREA NITROGEN,BUN 22 mg/dL (7-18); BUN/CREATININE RATIO 18.3 (9-20); CALCIUM 9.6 mg/dL (8.6-10.2); CREATININE 1.2 mg/dL (0.55-1.02); ESTIMATED GFR 45 mL/min (>60); GLUCOSE RANDOM 95 mg/dL (80-116)
[2024-06-05 17:16] LABS: A/G RATIO 0.9; ALANINE AMINOTRANSFERASE,ALT 26 U/L (12-36); ALBUMIN 3.3 g/dL (3.2-4.6); ALKALINE PHOSPHATASE 47 IU/L (56-112); ASPARTATE AMNIOTRANSFERASE,AST 24 IU/L (5-25); BILIRUBIN TOTAL 1.1 mg/dL (0.1-1.3); MAGNESIUM 2.1 mg/dL (1.8-2.5); PROTEIN TOTAL,TP 6.8 g/dL (6.0-8.0)
[2024-06-05] MEDS: Ondansetron 4 MG/2 ML SDV IVPUSH ONE (17:21)
[2024-06-05] MEDS: fentaNYL 100 MCG/2 ML SDV IVPUSH ONE (17:22)
[2024-06-05 17:23] LABS: C-REACTIVE PROTEIN 1.11 mg/dL (<0.50); TROPONIN I 14.8 pg/mL (4.0-60.3)
[2024-06-05 19:00] LABS: BILIRUBIN,URINE NEGATIVE (NEGATIVE); GLUCOSE,URINE NORMAL (NORMAL); KETONES,URINE NEGATIVE (NEGATIVE); LEUKOCYTE ESTERASE,URINE NEGATIVE (NEGATIVE); NITRITE,URINE NEGATIVE (NEGATIVE); OCCULT BLOOD,URINE NEGATIVE (NEGATIVE); PROTEIN,URINE TRACE mg/dL (NEGATIVE); UROBILINOGEN,URINE NORMAL (NEGATIVE)
[2024-06-05 19:04] LABS: APPEARANCE,URINE CLEAR (CLEAR); BACTERIA,URINE FEW (NS); COLOR,URINE YELLOW (YELLOW); RBC,URINE 0-5 (0-5); SQUAMOUS EPITHELIAL CELLS,UR RARE (NS,R,O); WBC,URINE 0-5 (0-5)
[2024-06-05] MEDS: Iopamidol 755 Mg/ML 100 ML Bottle IV ONE (19:10)
[2024-06-05] MEDS: Albuterol/Ipratropium 3.0-0.5 MG/3 ML Neb Soln NEB ONE (19:17)
[2024-06-05] MEDS: Albuterol 0.083% 2.5 MG/3 ML Neb Soln NEB ONE ×2 (19:20→22:15)
[2024-06-05 21:31] LABS: BASE EXCESS VENOUS,POC 3 mmol/L (-2 - 3+); PCO2 VENOUS,POC 71 mmHg (41-51); PH VENOUS,POC 7.26 pH Units (7.32-7.43)
[2024-06-05] MEDS: methylPREDNISolone Sodium Succinate 40 MG/1 ML SDV IVPUSH ONE (22:15)
[2024-06-06 01:55] LABS: BASE EXCESS VENOUS,POC 0 mmol/L (-2 - 3+); PCO2 VENOUS,POC 55 mmHg (41-51); PH VENOUS,POC 7.31 pH Units (7.32-7.43)
[2024-06-06] MEDS ORDERED: Ondansetron 4 MG/2 ML SDV IV PRN (03:14)
[2024-06-06] MEDS ORDERED: Albuterol 0.083% 2.5 MG/3 ML Neb Soln NEB PRN (03:14)
[2024-06-06] MEDS: Albuterol/Ipratropium 3.0-0.5 MG/3 ML Neb Soln NEB ONE (03:18)
[2024-06-06] MEDS: Sodium Chloride 0.9% 10 ML Syringe FLUSH PRN (03:20)
[2024-06-06] MEDS: cefTRIAXone 1 GM Vial IVPUSH SCH (03:20)
[2024-06-06] MEDS ORDERED: Enoxaparin 80 MG/0.8 ML Syringe SUBCUT SCH (03:30)
[2024-06-06] MEDS: Sodium Chloride 0.9% 1,000 ML IV SCH (03:57)
[2024-06-06] MEDS: Pantoprazole 40 MG Vial IVPUSH SCH (03:59)
[2024-06-06] MEDS: Rivaroxaban 10 MG Tab PO ONE (04:00)
[2024-06-06] MEDS: HYDROmorphone 2 MG/ML SDV IVPUSH PRN (04:05)
[2024-06-06] MEDS: Albuterol/Ipratropium 3.0-0.5 MG/3 ML Neb Soln NEB SCH (06:28)
[2024-06-06 07:35] LABS: HEMATOCRIT 38.8 % (34.2-48.2); HEMOGLOBIN 12.9 g/dL (11.4-15.5); MEAN CORPUSCULAR HEMOGLOBIN 32.3 pg (23.9-33.9); MEAN CORPUSCULAR HGB CONC 33.1 g/dL (31.9-34.8); MEAN CORPUSCULAR VOLUME 97.5 fL (76.7-100.5); MEAN PLATELET VOLUME 9.2 fL (7.1-12.4); PLATELET COUNT,PLT 191 x10(3)uL (151-488); RED BLOOD CELL COUNT 3.98 x10(6)uL (3.60-5.20); WHITE BLOOD CELL COUNT,WBC 5.7 x10-3/uL (3.0-10.3)
[2024-06-06 07:37] LABS: BLOOD UREA NITROGEN,BUN 24 mg/dL (7-18); BUN/CREATININE RATIO 17.1 (9-20); CALCIUM 9.3 mg/dL (8.6-10.2); CARBON DIOXIDE,CO2 28 mmol/L (21-32); CHLORIDE,CL 105 mmol/L (100-110); CREATININE 1.4 mg/dL (0.55-1.02); EST CRCL DRUG DOSING (CG) 21.87 mL/min; ESTIMATED GFR 37 mL/min (>60); GLUCOSE RANDOM 167 mg/dL (80-116); POTASSIUM,K 5.3 mmol/L (3.5-5.3); SODIUM,NA 141 mmol/L (135-145)
[2024-06-06 07:39] LABS: BASE EXCESS VENOUS,POC 0 mmol/L (-2 - 3+); PCO2 VENOUS,POC 43 mmHg (41-51); PH VENOUS,POC 7.37 pH Units (7.32-7.43)
[2024-06-06 08:11] LABS: LYMPHOCYTES PERCENT MAN 7 % (13-37); MONOCYTES PERCENT MAN 2 % (4-12); SEG NEUTROPHILS PERCENT MAN 91 % (46-82)
[2024-06-06] MEDS ORDERED: Acetaminophen 650 MG Tab.ER PO PRN (09:01)
[2024-06-06] MEDS ORDERED: Calcium Carbonate 500 MG Tab.Chew PO PRN (09:01)
[2024-06-06] MEDS ORDERED: oxyCODONE 5 MG Tab PO PRN (09:03)
[2024-06-06] MEDS: methylPREDNISolone Sodium Succinate 40 MG/1 ML SDV IVPUSH SCH (09:04)
[2024-06-06] MEDS ORDERED: methylPREDNISolone Sodium Succinate 40 MG/1 ML SDV IVPUSH ONE (09:30)
[2024-06-06] MEDS ORDERED: Furosemide 40 MG Tab PO SCH (09:30)
[2024-06-06] MEDS: Furosemide 40 MG/4 ML VIAL IVPUSH ONE (10:11)
[2024-06-06] MEDS: Calcium Carbonate 500 MG Tablet PO SCH (10:12)
[2024-06-06] MEDS: Escitalopram 10 MG Tab PO SCH (10:12)
[2024-06-06] MEDS: Pregabalin 100 MG Cap PO SCH (10:18)
[2024-06-06] MEDS: methylPREDNISolone Sodium Succinate 40 MG/1 ML SDV IVPUSH ONE (10:20)
[2024-06-06] MEDS ORDERED: traMADol 50 MG Tab PO PRN (10:52)
[2024-06-06] MEDS: Formoterol/Mometasone 100-5 MCG 8.8 GM Inhaler INH SCH (11:41)
[2024-06-06] MEDS: Tiotropium Bromide 4 GM Inhalation Spray (2.5mcg/1 dose; 10 doses) INH SCH (11:41)
[2024-06-06] MEDS: Furosemide 20 MG Tab PO SCH (13:42)
[2024-06-06] MEDS: methylPREDNISolone Sodium Succinate 125 MG/2 ML SDV IVPUSH SCH (17:03)
[2024-06-06] MEDS: Rivaroxaban 10 MG Tab PO SCH (17:04)
[2024-06-06] MEDS: Sodium Chloride 0.9% 500 ML IV ONE (17:45)
[2024-06-06 18:15] LABS: BLOOD UREA NITROGEN,BUN 31 mg/dL (7-18); BUN/CREATININE RATIO 18.2 (9-20); CARBON DIOXIDE,CO2 27 mmol/L (21-32); CHLORIDE,CL 104 mmol/L (100-110); CREATININE 1.7 mg/dL (0.55-1.02); EST CRCL DRUG DOSING (CG) 18.01 mL/min; ESTIMATED GFR 30 mL/min (>60); GLUCOSE RANDOM 263 mg/dL (80-116); POTASSIUM,K 4.3 mmol/L (3.5-5.3); SODIUM,NA 140 mmol/L (135-145)
[2024-06-06 18:28] LABS: TROPONIN I 15.1 pg/mL (4.0-60.3)
[2024-06-06] MEDS: Norepinephrine Bit/D5W Premix 4 MG in Premix Bag 1 BAG IV SCH (20:46)
[2024-06-06 20:54] VITALS: BP 92/52; PULSE 62
[2024-06-06] MEDS ORDERED: Sodium Chloride 0.9% 1,000 ML IV SCH (21:00)
[2024-06-06 21:33] LABS: HEMATOCRIT 38.7 % (34.2-48.2); HEMOGLOBIN 12.5 g/dL (11.4-15.5); MEAN CORPUSCULAR HEMOGLOBIN 31.6 pg (23.9-33.9); MEAN CORPUSCULAR HGB CONC 32.3 g/dL (31.9-34.8); MEAN CORPUSCULAR VOLUME 97.9 fL (76.7-100.5); PLATELET COUNT,PLT 197 x10(3)uL (151-488); RED BLOOD CELL COUNT 3.96 x10(6)uL (3.60-5.20); RED CELL DISTRIBUTION WIDTH 14.3 % (12.3-16.5)
[2024-06-06 21:39] LABS: BASE EXCESS VENOUS,POC -3 mmol/L (-2 - 3+); PCO2 VENOUS,POC 44 mmHg (41-51); PH VENOUS,POC 7.33 pH Units (7.32-7.43)
[2024-06-06 21:47] LABS: A/G RATIO 0.8; ALANINE AMINOTRANSFERASE,ALT 20 U/L (12-36); ALBUMIN 3.1 g/dL (3.2-4.6); ALKALINE PHOSPHATASE 49 IU/L (56-112); ASPARTATE AMNIOTRANSFERASE,AST 14 IU/L (5-25); BILIRUBIN TOTAL 0.6 mg/dL (0.1-1.3); BLOOD UREA NITROGEN,BUN 34 mg/dL (7-18); CALCIUM 9.2 mg/dL (8.6-10.2); CARBON DIOXIDE,CO2 24 mmol/L (21-32); CHLORIDE,CL 103 mmol/L (100-110); EST CRCL DRUG DOSING (CG) 15.31 mL/min; ESTIMATED GFR 24 mL/min (>60); GLUCOSE RANDOM 300 mg/dL (80-116); POTASSIUM,K 4.6 mmol/L (3.5-5.3); PROTEIN TOTAL,TP 6.8 g/dL (6.0-8.0); SODIUM,NA 138 mmol/L (135-145)
[2024-06-06 21:55] LABS: BAND PERCENT MAN 4 % (0-6); LYMPHOCYTES PERCENT MAN 9 % (13-37); MONOCYTES PERCENT MAN 3 % (4-12); SEG NEUTROPHILS PERCENT MAN 84 % (46-82)
[2024-06-06 22:46] LABS: LACTIC ACID 3.6 mmol/L (0.4-2.0)
[2024-06-07] MEDS ORDERED: Non-Formulary Medication 1 Each (Fluticasone/Umeclidin/Vilanter [Trelegy Ellipta 100-62.5- INH SCH (09:00)
[2024-06-07] MEDS ORDERED: Furosemide 40 MG Tab PO SCH (09:00)
[2024-06-07] MEDS ORDERED: Metoprolol Succinate 50 MG Tab.ER PO SCH (09:00)
== END 2024-06-06 23:53 | DRG 189 ==
LOC: FB.ED 15:07 → FB.MS 06-06 03:23
PROVIDERS: ADMIT Emergency Medicine; ATTEND Family Medicine
PROC: 5A09357 Assistance with Respiratory Ventilation, Less than 24 Consecutive Hours, Continuous Positive Airway Pressure (ICD-10-PCS; principal; 2024-06-05)
DX: J96.21 Acute and chronic respiratory failure with hypoxia (principal); S22.060A Wedge compression fracture of T7-T8 vertebra, initial encounter for closed fracture; I13.0 Hypertensive heart and chronic kidney disease with heart failure and stage 1 through stage 4 chronic kidney disease, or unspecified chronic kidney disease; J44.1 Chronic obstructive pulmonary disease with (acute) exacerbation; J96.22 Acute and chronic respiratory failure with hypercapnia; N18.9 Chronic kidney disease, unspecified; I11.0 Hypertensive heart disease with heart failure; E66.9 Obesity, unspecified; H91.90 Unspecified hearing loss, unspecified ear; I25.10 Atherosclerotic heart disease of native coronary artery without angina pectoris; I50.9 Heart failure, unspecified; E78.00 Pure hypercholesterolemia, unspecified; J44.89 Other specified chronic obstructive pulmonary disease; K21.9 Gastro-esophageal reflux disease without esophagitis; G89.29 Other chronic pain; M79.7 Fibromyalgia; Z79.01 Long term (current) use of anticoagulants; M19.90 Unspecified osteoarthritis, unspecified site; E11.22 Type 2 diabetes mellitus with diabetic chronic kidney disease; E11.42 Type 2 diabetes mellitus with diabetic polyneuropathy; F41.9 Anxiety disorder, unspecified; F32.A Depression, unspecified; F15.90 Other stimulant use, unspecified, uncomplicated; E66.01 Morbid (severe) obesity due to excess calories; N18.32 Chronic kidney disease, stage 3b; R79.89 Other specified abnormal findings of blood chemistry; I25.2 Old myocardial infarction; Z68.37 Body mass index [BMI] 37.0-37.9, adult; Z88.5 Allergy status to narcotic agent; Z88.8 Allergy status to other drugs, medicaments and biological substances; Z79.1 Long term (current) use of non-steroidal anti-inflammatories (NSAID); Z79.51 Long term (current) use of inhaled steroids; Z86.718 Personal history of other venous thrombosis and embolism; Z95.0 Presence of cardiac pacemaker; Z90.49 Acquired absence of other specified parts of digestive tract; Z98.890 Other specified postprocedural states; Z87.891 Personal history of nicotine dependence; Z79.899 Other long term (current) drug therapy; Z79.02 Long term (current) use of antithrombotics/antiplatelets
CPT/HCPCS: 36415; 51702; 70450; 71045; 71275; 72125; 72128; 74177; 80048; 80053; 81001; 83605; 83735; 83880; 84484; 85025; 85379; 86140; 87428-QW; 93005; 93010; 94640; 94660; 96374; 96375; 99285; 99285-25; A9270-GY; J0696; J1171; J1940; J2405; J2470; J2919; J3010; J7030; J7040; J7620; Q9967

== ENCOUNTER 2024-06-14 09:45 | Emergency (ER) | payer MEDICARE, MEDICAID ==
[2024-06-14] MEDS: Sodium Chloride 0.9% 1,000 ML IV SCH (10:24)
[2024-06-14] MEDS: Ondansetron 4 MG/2 ML SDV IVPUSH ONE (10:24)
[2024-06-14 11:00] LABS: BASOPHILS PERCENT AUTO 0.3 % (0.2-1.5); EOSINOPHILS PERCENT AUTO 0.2 % (0.6-8.1); HEMOGLOBIN 15.1 g/dL (11.4-15.5); LYMPHOCYTES ABSOLUTE AUTO 1.1 x10-3/uL (1.0-4.4); LYMPHOCYTES PERCENT AUTO 10.7 % (18.4-52.1); MEAN CORPUSCULAR HEMOGLOBIN 31.9 pg (23.9-33.9); MEAN CORPUSCULAR HGB CONC 33.6 g/dL (31.9-34.8); MEAN CORPUSCULAR VOLUME 94.9 fL (76.7-100.5); MEAN PLATELET VOLUME 9.5 fL (7.1-12.4); MONOCYTES ABSOLUTE AUTO 0.8 x10-3/uL (0.3-1.0); NEUTROPHILS ABSOLUTE AUTO 8.2 x10-3/uL (1.5-6.3); NEUTROPHILS PERCENT AUTO 80.8 % (30.8-76.2); PLATELET COUNT,PLT 227 x10(3)uL (151-488); RED BLOOD CELL COUNT 4.74 x10(6)uL (3.60-5.20); RED CELL DISTRIBUTION WIDTH 14.2 % (12.3-16.5); WHITE BLOOD CELL COUNT,WBC 10.2 x10-3/uL (3.0-10.3)
[2024-06-14 11:04] LABS: ALANINE AMINOTRANSFERASE,ALT 31 U/L (12-36); ALBUMIN 3.5 g/dL (3.2-4.6); ALKALINE PHOSPHATASE 50 IU/L (56-112); ASPARTATE AMNIOTRANSFERASE,AST 25 IU/L (5-25); BILIRUBIN TOTAL 1.9 mg/dL (0.1-1.3); BLOOD UREA NITROGEN,BUN 59 mg/dL (7-18); BUN/CREATININE RATIO 18.4 (9-20); CALCIUM 9.6 mg/dL (8.6-10.2); CARBON DIOXIDE,CO2 37 mmol/L (21-32); CHLORIDE,CL 92 mmol/L (100-110); EST CRCL DRUG DOSING (CG) 9.57 mL/min; ESTIMATED GFR 14 mL/min (>60); GLUCOSE RANDOM 118 mg/dL (80-116); POTASSIUM,K 3.3 mmol/L (3.5-5.3); SODIUM,NA 137 mmol/L (135-145)
[2024-06-14 11:07] LABS: CREATININE 3.2 mg/dL (0.55-1.02)
[2024-06-14] MEDS: Sodium Chloride 0.9% 500 ML IV ONE (12:54)
[2024-06-14 15:39] VITALS: BP 100/60; PULSE 65
== END 2024-06-14 16:09 | disposition other institution (70) ==
LOC: FB.ED 09:45
DX: K52.9 Noninfective gastroenteritis and colitis, unspecified (principal); N17.9 Acute kidney failure, unspecified; I11.0 Hypertensive heart disease with heart failure; I50.9 Heart failure, unspecified; I25.10 Atherosclerotic heart disease of native coronary artery without angina pectoris; J44.89 Other specified chronic obstructive pulmonary disease; E66.9 Obesity, unspecified; Z88.5 Allergy status to narcotic agent; Z88.8 Allergy status to other drugs, medicaments and biological substances; Z79.899 Other long term (current) drug therapy; Z90.49 Acquired absence of other specified parts of digestive tract; Z68.34 Body mass index [BMI] 34.0-34.9, adult
CPT/HCPCS: 36415; 71045; 74176; 80053; 83690; 84484; 85025; 96361; 96374; 99285; J2405; J7030; J7040

== ENCOUNTER 2024-06-22 15:58 | Emergency (ER) | payer MEDICARE, MEDICAID ==
[2024-06-22 16:25] VITALS: BP 156/68; PULSE 72
[2024-06-22 16:26] LABS: BASOPHILS PERCENT AUTO 0.6 % (0.2-1.5); EOSINOPHILS PERCENT AUTO 0.4 % (0.6-8.1); HEMATOCRIT 37.2 % (34.2-48.2); HEMOGLOBIN 12.4 g/dL (11.4-15.5); LYMPHOCYTES ABSOLUTE AUTO 1.1 x10-3/uL (1.0-4.4); LYMPHOCYTES PERCENT AUTO 19.6 % (18.4-52.1); MEAN CORPUSCULAR HGB CONC 33.2 g/dL (31.9-34.8); MEAN CORPUSCULAR VOLUME 96.5 fL (76.7-100.5); MEAN PLATELET VOLUME 9.4 fL (7.1-12.4); MONOCYTES ABSOLUTE AUTO 0.6 x10-3/uL (0.3-1.0); MONOCYTES PERCENT AUTO 9.9 % (4.4-15.7); NEUTROPHILS ABSOLUTE AUTO 4.1 x10-3/uL (1.5-6.3); NEUTROPHILS PERCENT AUTO 69.5 % (30.8-76.2); PLATELET COUNT,PLT 186 x10(3)uL (151-488); RED BLOOD CELL COUNT 3.85 x10(6)uL (3.60-5.20); RED CELL DISTRIBUTION WIDTH 14.2 % (12.3-16.5); WHITE BLOOD CELL COUNT,WBC 5.8 x10-3/uL (3.0-10.3)
[2024-06-22 16:30] LABS: BLOOD UREA NITROGEN,BUN 16 mg/dL (7-18); BUN/CREATININE RATIO 11.4 (9-20); CALCIUM 8.8 mg/dL (8.6-10.2); CARBON DIOXIDE,CO2 31 mmol/L (21-32); CHLORIDE,CL 103 mmol/L (100-110); CREATININE 1.4 mg/dL (0.55-1.02); ESTIMATED GFR 37 mL/min (>60); GLUCOSE RANDOM 146 mg/dL (80-116); POTASSIUM,K 3.1 mmol/L (3.5-5.3); SODIUM,NA 141 mmol/L (135-145)
[2024-06-22 16:35] LABS: A/G RATIO 0.9; ALANINE AMINOTRANSFERASE,ALT 29 U/L (12-36); ALBUMIN 3.1 g/dL (3.2-4.6); ALKALINE PHOSPHATASE 54 IU/L (56-112); ASPARTATE AMNIOTRANSFERASE,AST 17 IU/L (5-25); BILIRUBIN TOTAL 1.1 mg/dL (0.1-1.3); PROTEIN TOTAL,TP 6.4 g/dL (6.0-8.0)
[2024-06-22 16:38] LABS: D-DIMER QUANTITATIVE 1.49 mg/LFEU (0.0-0.59); INR 1.03 (1.00-1.24); PROTHROMBIN TIME 10.7 sec (9.0-11.1)
[2024-06-22 16:42] LABS: PTT,PARTIAL THROMBOPLSTIN TIME 24.9 SECONDS (24.4-33.2)
[2024-06-22] MEDS: Sodium Chloride 0.9% 10 ML Syringe FLUSH PRN (16:49)
[2024-06-22] MEDS: Furosemide 40 MG/4 ML VIAL IVPUSH ONE (16:49)
[2024-06-22] MEDS: Metolazone 5 MG Tab PO ONE (16:49)
[2024-06-22 16:57] LABS: TROPONIN I 22.5 pg/mL (4.0-60.3)
[2024-06-22] MEDS: Potassium Chloride 20 MEQ Tab.ER PO ONE (18:24)
== END 2024-06-22 19:14 | disposition home or self-care (01) ==
LOC: FB.ED 15:58
DX: I11.0 Hypertensive heart disease with heart failure (principal); I50.9 Heart failure, unspecified; E87.6 Hypokalemia; I25.10 Atherosclerotic heart disease of native coronary artery without angina pectoris; I25.2 Old myocardial infarction; E78.00 Pure hypercholesterolemia, unspecified; J44.89 Other specified chronic obstructive pulmonary disease; K21.9 Gastro-esophageal reflux disease without esophagitis; E11.42 Type 2 diabetes mellitus with diabetic polyneuropathy; E66.9 Obesity, unspecified; Z68.34 Body mass index [BMI] 34.0-34.9, adult; Z87.891 Personal history of nicotine dependence; Z90.49 Acquired absence of other specified parts of digestive tract; Z88.8 Allergy status to other drugs, medicaments and biological substances; Z88.5 Allergy status to narcotic agent; Z79.51 Long term (current) use of inhaled steroids; Z79.01 Long term (current) use of anticoagulants; Z79.899 Other long term (current) drug therapy
CPT/HCPCS: 36415; 71045; 80053; 83880; 84484; 85025; 85379; 85610; 85730; 93005; 96374; 99284; A9270; J1940; 93010

== ENCOUNTER 2024-06-25 13:35 | Emergency (ER) | payer MEDICARE, MEDICAID ==
[2024-06-25 13:51] VITALS: BP 134/61; PULSE 60
[2024-06-25 14:00] LABS: BASOPHILS ABSOLUTE AUTO 0.1 x10-3/uL (0.0-0.1); BASOPHILS PERCENT AUTO 0.7 % (0.2-1.5); EOSINOPHILS PERCENT AUTO 0.5 % (0.6-8.1); HEMATOCRIT 40.2 % (34.2-48.2); HEMOGLOBIN 13.4 g/dL (11.4-15.5); LYMPHOCYTES ABSOLUTE AUTO 1.2 x10-3/uL (1.0-4.4); LYMPHOCYTES PERCENT AUTO 13.5 % (18.4-52.1); MEAN CORPUSCULAR HEMOGLOBIN 31.8 pg (23.9-33.9); MEAN CORPUSCULAR HGB CONC 33.2 g/dL (31.9-34.8); MEAN CORPUSCULAR VOLUME 95.8 fL (76.7-100.5); MEAN PLATELET VOLUME 9.3 fL (7.1-12.4); MONOCYTES ABSOLUTE AUTO 0.9 x10-3/uL (0.3-1.0); MONOCYTES PERCENT AUTO 9.7 % (4.4-15.7); NEUTROPHILS ABSOLUTE AUTO 6.8 x10-3/uL (1.5-6.3); NEUTROPHILS PERCENT AUTO 75.6 % (30.8-76.2); PLATELET COUNT,PLT 201 x10(3)uL (151-488); RED CELL DISTRIBUTION WIDTH 14.5 % (12.3-16.5)
[2024-06-25 14:14] LABS: A/G RATIO 0.8; ALANINE AMINOTRANSFERASE,ALT 24 U/L (12-36); ALBUMIN 3.1 g/dL (3.2-4.6); ALKALINE PHOSPHATASE 61 IU/L (56-112); ASPARTATE AMNIOTRANSFERASE,AST 14 IU/L (5-25); BLOOD UREA NITROGEN,BUN 33 mg/dL (7-18); BUN/CREATININE RATIO 15.7 (9-20); CARBON DIOXIDE,CO2 36 mmol/L (21-32); CHLORIDE,CL 99 mmol/L (100-110); EST CRCL DRUG DOSING (CG) 14.58 mL/min; ESTIMATED GFR 23 mL/min (>60); GLUCOSE RANDOM 107 mg/dL (80-116); POTASSIUM,K 4.3 mmol/L (3.5-5.3); PROTEIN TOTAL,TP 6.9 g/dL (6.0-8.0); SODIUM,NA 140 mmol/L (135-145)
[2024-06-25 14:21] LABS: TROPONIN I 19.1 pg/mL (4.0-60.3)
[2024-06-25 14:24] LABS: CREATININE 2.1 mg/dL (0.55-1.02)
[2024-06-25 14:25] LABS: C-REACTIVE PROTEIN 4.45 mg/dL (<0.50)
[2024-06-25 14:33] LABS: BASE EXCESS VENOUS,POC 8 mmol/L (-2 - 3+); PCO2 VENOUS,POC 48 mmHg (41-51); PH VENOUS,POC 7.45 pH Units (7.32-7.43)
[2024-06-25 14:59] LABS: BILIRUBIN,URINE NEGATIVE (NEGATIVE); GLUCOSE,URINE NORMAL (NORMAL); KETONES,URINE NEGATIVE (NEGATIVE); LEUKOCYTE ESTERASE,URINE LARGE (NEGATIVE); NITRITE,URINE NEGATIVE (NEGATIVE); OCCULT BLOOD,URINE TRACE (NEGATIVE); PROTEIN,URINE NEGATIVE (NEGATIVE); UROBILINOGEN,URINE NORMAL (NEGATIVE)
[2024-06-25 15:20] LABS: APPEARANCE,URINE CLOUDY (CLEAR); BACTERIA,URINE MANY (NS); COLOR,URINE YELLOW (YELLOW); RBC,URINE 0-5 (0-5); SQUAMOUS EPITHELIAL CELLS,UR MANY (NS,R,O); WBC,URINE 30-40 (0-5)
[2024-06-25] MEDS ORDERED: Sodium Chloride 0.9% 1,000 ML IV SCH (17:30)
[2024-06-25 17:35] LABS: BILIRUBIN,URINE NEGATIVE (NEGATIVE); GLUCOSE,URINE NORMAL (NORMAL); KETONES,URINE NEGATIVE (NEGATIVE); LEUKOCYTE ESTERASE,URINE NEGATIVE (NEGATIVE); NITRITE,URINE NEGATIVE (NEGATIVE); OCCULT BLOOD,URINE NEGATIVE (NEGATIVE); PROTEIN,URINE NEGATIVE (NEGATIVE); UROBILINOGEN,URINE NORMAL (NEGATIVE)
[2024-06-25 17:45] LABS: APPEARANCE,URINE CLEAR (CLEAR); BACTERIA,URINE RARE (NS); COLOR,URINE YELLOW (YELLOW); RBC,URINE 0-5 (0-5); SQUAMOUS EPITHELIAL CELLS,UR OCCASIONAL (NS,R,O); WBC,URINE 0-5 (0-5)
[2024-06-25] MEDS: Furosemide 40 MG/4 ML VIAL IVPUSH ONE (18:11)
[2024-06-25] MEDS: Sodium Chloride 0.9% 500 ML IV ONE (18:11)
== END 2024-06-25 18:45 ==
LOC: FB.ED 13:35
DX: J96.21 Acute and chronic respiratory failure with hypoxia (principal); N17.9 Acute kidney failure, unspecified; I11.0 Hypertensive heart disease with heart failure; I50.9 Heart failure, unspecified; I25.2 Old myocardial infarction; I25.10 Atherosclerotic heart disease of native coronary artery without angina pectoris; E78.00 Pure hypercholesterolemia, unspecified; E11.40 Type 2 diabetes mellitus with diabetic neuropathy, unspecified; J44.89 Other specified chronic obstructive pulmonary disease; Z87.891 Personal history of nicotine dependence; Z95.0 Presence of cardiac pacemaker; Z88.5 Allergy status to narcotic agent; Z88.8 Allergy status to other drugs, medicaments and biological substances; Z79.51 Long term (current) use of inhaled steroids; Z79.899 Other long term (current) drug therapy
CPT/HCPCS: 36415; 51702; 71045; 80053; 81001; 83880; 84484; 85025; 86140; 87086; 96374; 99285; J1940; J7040

== ENCOUNTER 2024-06-28 10:00 | Inpatient (IN) | payer MEDICARE, MEDICAID ==
[2024-06-28] MEDS ORDERED: Calcium Carbonate 500 MG Tab.Chew PO PRN (16:49)
[2024-06-28] MEDS ORDERED: Triamcinolone Acetonide 0.1% Crm 15 GM Tube TOP PRN (16:49)
[2024-06-28] MEDS ORDERED: Nitroglycerin 0.4 MG Tab.SL SL PRN (16:49)
[2024-06-28] MEDS ORDERED: Tuberculin, PPD 5 Units/0.1 ML 1 ML MDV IDERM ONE (16:52)
[2024-06-28] MEDS: Calcium Carbonate 500 MG Tablet PO SCH (18:23)
[2024-06-28] MEDS: Rivaroxaban 10 MG Tab PO SCH (18:23)
[2024-06-28] MEDS: Melatonin 3 MG Tab PO PRN (21:38)
[2024-06-28] MEDS: Sucralfate 1 GM Tab PO ONE (21:39)
[2024-06-28] MEDS: traMADol 50 MG Tab PO PRN (21:39)
[2024-06-28] MEDS: Pregabalin 100 MG Cap PO SCH (21:45)
[2024-06-29] MEDS ORDERED: Estradiol 0.01% Vaginal Crm 42.5 GM Tube VAG PRN (07:44)
[2024-06-29] MEDS: Pantoprazole 40 MG Tab.CR PO SCH (08:09)
[2024-06-29] MEDS: Formoterol/Mometasone 100-5 MCG 8.8 GM Inhaler INH SCH (08:11)
[2024-06-29] MEDS: atorvaSTATin 20 MG Tab PO SCH (08:12)
[2024-06-29] MEDS: Sucralfate 1 GM Tab PO SCH (08:12)
[2024-06-29] MEDS: Lisinopril 5 MG Tab PO SCH (08:12)
[2024-06-29] MEDS: Escitalopram 10 MG Tab PO SCH (08:12)
[2024-06-29] MEDS: Metoprolol Succinate 50 MG Tab.ER PO SCH (08:13)
[2024-06-29] MEDS: Tiotropium Bromide 4 GM Inhalation Spray (2.5mcg/1 dose; 10 doses) INH SCH (08:15)
[2024-06-29] MEDS ORDERED: Bumetanide 1 MG Tab PO SCH (09:00)
[2024-06-29] MEDS ORDERED: Non-Formulary Medication 1 Each (Fluticasone/Umeclidin/Vilanter [Trelegy Ellipta 100-62.5- INH SCH (09:00)
[2024-06-29] MEDS: Lidocaine 4% Patch TOP SCH (14:13)
[2024-06-29] MEDS: Bumetanide 1 MG Tab PO SCH (14:19)
[2024-06-30] MEDS: Lidocaine 4% Patch TOP SCH (08:47)
[2024-07-03] MEDS: Sucralfate 1 GM Tab PO SCH (20:18)
[2024-07-04] MEDS: Albuterol/Ipratropium 3.0-0.5 MG/3 ML Neb Soln INH PRN (12:02)
[2024-07-04] MEDS: atorvaSTATin 20 MG Tab PO SCH (20:25)
[2024-07-05] MEDS: Albuterol 6.7 GM Inhaler INH PRN (18:08)
[2024-07-06] MEDS: Bumetanide 1 MG Tab PO ONE (11:34)
[2024-07-07] MEDS ORDERED: Magnesium Hydroxide 400 MG/5 ML Susp 30 ML Cup PO PRN (04:48)
[2024-07-08] MEDS: Bumetanide 1 MG Tab PO ONE (09:06)
[2024-07-08] MEDS: Acetaminophen 650 MG Tab.ER PO PRN (21:11)
[2024-07-12] MEDS ORDERED: Tuberculin, PPD 5 Units/0.1 ML 1 ML MDV IDERM ONE (16:52)
[2024-07-14 11:21] VITALS: BP 140/68; PULSE 94
== END 2024-07-14 11:00 | disposition home health service (06) | DRG 947 ==
LOC: FB.MS 12:39
PROVIDERS: ADMIT Internal Medicine; ATTEND Family Medicine
DX: R53.81 Other malaise (principal); J96.21 Acute and chronic respiratory failure with hypoxia; I13.0 Hypertensive heart and chronic kidney disease with heart failure and stage 1 through stage 4 chronic kidney disease, or unspecified chronic kidney disease; N17.9 Acute kidney failure, unspecified; H91.90 Unspecified hearing loss, unspecified ear; H54.7 Unspecified visual loss; I25.10 Atherosclerotic heart disease of native coronary artery without angina pectoris; E78.00 Pure hypercholesterolemia, unspecified; K21.9 Gastro-esophageal reflux disease without esophagitis; J44.89 Other specified chronic obstructive pulmonary disease; J45.909 Unspecified asthma, uncomplicated; J44.9 Chronic obstructive pulmonary disease, unspecified; G47.30 Sleep apnea, unspecified; G89.29 Other chronic pain; M79.7 Fibromyalgia; M19.90 Unspecified osteoarthritis, unspecified site; E11.42 Type 2 diabetes mellitus with diabetic polyneuropathy; F41.9 Anxiety disorder, unspecified; F32.A Depression, unspecified; E66.9 Obesity, unspecified; F15.90 Other stimulant use, unspecified, uncomplicated; N18.31 Chronic kidney disease, stage 3a; E11.22 Type 2 diabetes mellitus with diabetic chronic kidney disease; I48.91 Unspecified atrial fibrillation; I50.9 Heart failure, unspecified; Z88.8 Allergy status to other drugs, medicaments and biological substances; Z88.5 Allergy status to narcotic agent; Z79.1 Long term (current) use of non-steroidal anti-inflammatories (NSAID); I25.2 Old myocardial infarction; Z95.0 Presence of cardiac pacemaker; Z90.89 Acquired absence of other organs; Z90.49 Acquired absence of other specified parts of digestive tract; Z98.890 Other specified postprocedural states; Z87.891 Personal history of nicotine dependence; Z99.81 Dependence on supplemental oxygen; Z79.51 Long term (current) use of inhaled steroids; Z79.01 Long term (current) use of anticoagulants; Z79.02 Long term (current) use of antithrombotics/antiplatelets; Z79.899 Other long term (current) drug therapy
CPT/HCPCS: 36415; 84484; 93005; 93010; 94640; 97110-GO; 97110-GP; 97116-GP; 97161-GP; 97165-GO; 97530-GO; 97530-GP; 97535-GO; 99305; 99308; 99315; A9270-GY

== ENCOUNTER 2024-08-22 07:06 | Emergency (ER) | payer MEDICARE, MEDICAID ==
[2024-08-22] MEDS: methylPREDNISolone Sodium Succinate 125 MG/2 ML SDV IVPUSH SCH (07:59)
[2024-08-22] MEDS: Albuterol/Ipratropium 3.0-0.5 MG/3 ML Neb Soln NEB ONE (07:59)
[2024-08-22] MEDS: Sodium Chloride 0.9% 10 ML Syringe FLUSH PRN (08:16)
[2024-08-22 08:26] LABS: BILIRUBIN,URINE NEGATIVE (NEGATIVE); GLUCOSE,URINE NORMAL (NORMAL); KETONES,URINE NEGATIVE (NEGATIVE); LEUKOCYTE ESTERASE,URINE NEGATIVE (NEGATIVE); NITRITE,URINE NEGATIVE (NEGATIVE); OCCULT BLOOD,URINE NEGATIVE (NEGATIVE); PROTEIN,URINE NEGATIVE (NEGATIVE); UROBILINOGEN,URINE NORMAL (NEGATIVE)
[2024-08-22 08:28] LABS: APPEARANCE,URINE CLEAR (CLEAR); COLOR,URINE YELLOW (YELLOW)
[2024-08-22 08:41] LABS: HEMATOCRIT 36.6 % (34.2-48.2); HEMOGLOBIN 12.2 g/dL (11.4-15.5); MEAN CORPUSCULAR HEMOGLOBIN 31.8 pg (23.9-33.9); MEAN CORPUSCULAR HGB CONC 33.3 g/dL (31.9-34.8); MEAN CORPUSCULAR VOLUME 95.3 fL (76.7-100.5); RED BLOOD CELL COUNT 3.84 x10(6)uL (3.60-5.20); RED CELL DISTRIBUTION WIDTH 15.6 % (12.3-16.5); WHITE BLOOD CELL COUNT,WBC 7.4 x10-3/uL (3.0-10.3)
[2024-08-22 08:47] LABS: BASE EXCESS VENOUS,POC 4 mmol/L (-2 - 3+); PCO2 VENOUS,POC 46 mmHg (41-51); PH VENOUS,POC 7.41 pH Units (7.32-7.43)
[2024-08-22 08:49] LABS: BLOOD UREA NITROGEN,BUN 15 mg/dL (7-18); BUN/CREATININE RATIO 16.7 (9-20); CALCIUM 9.2 mg/dL (8.6-10.2); CARBON DIOXIDE,CO2 32 mmol/L (21-32); CHLORIDE,CL 105 mmol/L (100-110); CREATININE 0.9 mg/dL (0.55-1.02); ESTIMATED GFR 63 mL/min (>60); GLUCOSE RANDOM 115 mg/dL (80-116); POTASSIUM,K 4.5 mmol/L (3.5-5.3); SODIUM,NA 144 mmol/L (135-145)
[2024-08-22 08:55] LABS: ALANINE AMINOTRANSFERASE,ALT 23 U/L (12-36); ALBUMIN 3.4 g/dL (3.2-4.6); ALKALINE PHOSPHATASE 40 IU/L (56-112); ASPARTATE AMNIOTRANSFERASE,AST 25 IU/L (5-25); BILIRUBIN TOTAL 1.2 mg/dL (0.1-1.3); PROTEIN TOTAL,TP 6.7 g/dL (6.0-8.0)
[2024-08-22 09:02] LABS: TROPONIN I 42.6 pg/mL (4.0-60.3)
[2024-08-22] MEDS: Furosemide 40 MG/4 ML VIAL IVPUSH ONE (09:11)
[2024-08-22] MEDS: Metolazone 5 MG Tab PO ONE (09:11)
[2024-08-22 12:19] VITALS: BP 147/66; PULSE 87
== END 2024-08-22 12:10 | disposition home or self-care (01) ==
LOC: FB.ED 07:06
DX: I11.0 Hypertensive heart disease with heart failure (principal); I50.9 Heart failure, unspecified; J44.89 Other specified chronic obstructive pulmonary disease; K21.9 Gastro-esophageal reflux disease without esophagitis; E66.9 Obesity, unspecified; Z68.35 Body mass index [BMI] 35.0-35.9, adult; Z90.49 Acquired absence of other specified parts of digestive tract; Z87.891 Personal history of nicotine dependence; Z79.899 Other long term (current) drug therapy; Z88.5 Allergy status to narcotic agent; Z88.8 Allergy status to other drugs, medicaments and biological substances
CPT/HCPCS: 36415; 71045; 80053; 81003; 83880; 84484; 85027; 93005; 93010; 96374; 96375; 99284; 99285; A9270; J1940; J2919

== ENCOUNTER 2025-04-19 12:44 | Emergency (ER) | payer MEDICARE, MEDICAID ==
[2025-04-19] MEDS ORDERED: Sodium Chloride 0.9% 10 ML Syringe FLUSH PRN (12:53)
[2025-04-19 13:30] LABS: BLOOD UREA NITROGEN,BUN 27 mg/dL (7-18); CARBON DIOXIDE,CO2 35 mmol/L (21-32); CHLORIDE,CL 99 mmol/L (100-110); CREATININE 1.0 mg/dL (0.55-1.02); ESTIMATED GFR 56 mL/min (>60); GLUCOSE RANDOM 132 mg/dL (80-116); POTASSIUM,K 4.3 mmol/L (3.5-5.3); SODIUM,NA 142 mmol/L (135-145)
[2025-04-19 13:31] LABS: MEAN PLATELET VOLUME 8.5 fL (7.1-12.4); PLATELET COUNT,PLT 226 x10(3)uL (151-488); RED BLOOD CELL COUNT 4.92 x10(6)uL (3.60-5.20); RED CELL DISTRIBUTION WIDTH 15.8 % (12.3-16.5); WHITE BLOOD CELL COUNT,WBC 9.1 x10-3/uL (3.0-10.3)
[2025-04-19 13:35] LABS: A/G RATIO 1.1; ALANINE AMINOTRANSFERASE,ALT 97 U/L (12-36); ASPARTATE AMNIOTRANSFERASE,AST 46 IU/L (5-25); BILIRUBIN TOTAL 1.7 mg/dL (0.1-1.3); PROTEIN TOTAL,TP 7.2 g/dL (6.0-8.0)
[2025-04-19 13:47] LABS: LYMPHOCYTES PERCENT MAN 9 % (13-37); MONOCYTES PERCENT MAN 2 % (4-12); SEG NEUTROPHILS PERCENT MAN 89 % (46-82)
[2025-04-19] MEDS: methylPREDNISolone Sodium Succinate 125 MG/2 ML SDV IM ONE (13:48)
[2025-04-19 13:49] LABS: LACTIC ACID 1.7 mmol/L (0.4-2.0)
[2025-04-19] MEDS: methylPREDNISolone Sodium Succinate 125 MG/2 ML SDV IVPUSH ONE (13:57)
[2025-04-19 14:03] VITALS: BP 164/62; PULSE 60
[2025-04-19] MEDS: Codeine/guaiFENesin 10-100 MG/5 ML Syrup 5 ML Cup PO ONE (17:21)
== END 2025-04-19 17:24 | disposition home or self-care (01) ==
LOC: FB.ED 12:44
DX: J10.1 Influenza due to other identified influenza virus with other respiratory manifestations (principal); J44.1 Chronic obstructive pulmonary disease with (acute) exacerbation; I11.0 Hypertensive heart disease with heart failure; I50.9 Heart failure, unspecified; I25.10 Atherosclerotic heart disease of native coronary artery without angina pectoris; E78.00 Pure hypercholesterolemia, unspecified; I25.2 Old myocardial infarction; K21.9 Gastro-esophageal reflux disease without esophagitis; Z88.5 Allergy status to narcotic agent; Z88.8 Allergy status to other drugs, medicaments and biological substances; Z79.899 Other long term (current) drug therapy; Z79.01 Long term (current) use of anticoagulants; Z95.0 Presence of cardiac pacemaker; Z87.891 Personal history of nicotine dependence
CPT/HCPCS: 36415; 71045; 71045-26; 80053; 83605; 83735; 85025; 93005; 93010; 94640; 96372; 99284; 99285; A9270-GY; J0696; J2919

== ENCOUNTER 2025-04-21 17:48 | Emergency (ER) | payer MEDICARE, MEDICAID ==
[2025-04-21] MEDS ORDERED: Sodium Chloride 0.9% 10 ML Syringe FLUSH PRN (17:54)
[2025-04-21 18:22] LABS: MEAN PLATELET VOLUME 8.1 fL (7.1-12.4); PLATELET COUNT,PLT 263 x10(3)uL (151-488); RED BLOOD CELL COUNT 4.56 x10(6)uL (3.60-5.20); RED CELL DISTRIBUTION WIDTH 15.8 % (12.3-16.5); WHITE BLOOD CELL COUNT,WBC 12.6 x10-3/uL (3.0-10.3)
[2025-04-21] MEDS: methylPREDNISolone Sodium Succinate 125 MG/2 ML SDV IVPUSH ONE (18:25)
[2025-04-21 18:28] LABS: BLOOD UREA NITROGEN,BUN 26 mg/dL (7-18); CARBON DIOXIDE,CO2 31 mmol/L (21-32); CHLORIDE,CL 99 mmol/L (100-110); CREATININE 1.3 mg/dL (0.55-1.02); ESTIMATED GFR 41 mL/min (>60); GLUCOSE RANDOM 117 mg/dL (80-116); POTASSIUM,K 4.2 mmol/L (3.5-5.3); SODIUM,NA 139 mmol/L (135-145)
[2025-04-21 18:34] LABS: A/G RATIO 1.1; ALANINE AMINOTRANSFERASE,ALT 69 U/L (12-36); ASPARTATE AMNIOTRANSFERASE,AST 31 IU/L (5-25); BILIRUBIN TOTAL 1.2 mg/dL (0.1-1.3); PROTEIN TOTAL,TP 6.6 g/dL (6.0-8.0)
[2025-04-21] MEDS: methylPREDNISolone Sodium Succinate 125 MG/2 ML SDV IM ONE (18:45)
[2025-04-21 18:46] LABS: LACTIC ACID 3.8 mmol/L (0.4-2.0)
[2025-04-21] MEDS: Lactated Ringers 1,000 ML IV ONE (18:52)
[2025-04-21 18:54] LABS: BAND PERCENT MAN 2 % (0-6); LYMPHOCYTES PERCENT MAN 6 % (13-37); METAMYELOCYTE PERCENT MAN 1 % (0-0); MONOCYTES PERCENT MAN 4 % (4-12); SEG NEUTROPHILS PERCENT MAN 87 % (46-82)
[2025-04-21 21:41] VITALS: BP 170/70; PULSE 60
== END 2025-04-21 21:50 | disposition home or self-care (01) ==
LOC: FB.ED 17:48
DX: J44.1 Chronic obstructive pulmonary disease with (acute) exacerbation (principal); E86.0 Dehydration; I11.0 Hypertensive heart disease with heart failure; I50.9 Heart failure, unspecified; E78.00 Pure hypercholesterolemia, unspecified; I25.10 Atherosclerotic heart disease of native coronary artery without angina pectoris; K21.9 Gastro-esophageal reflux disease without esophagitis; E66.9 Obesity, unspecified; E11.40 Type 2 diabetes mellitus with diabetic neuropathy, unspecified; Z88.8 Allergy status to other drugs, medicaments and biological substances; Z88.5 Allergy status to narcotic agent; Z79.899 Other long term (current) drug therapy; Z79.01 Long term (current) use of anticoagulants; Z79.51 Long term (current) use of inhaled steroids; Z90.89 Acquired absence of other organs; Z90.49 Acquired absence of other specified parts of digestive tract; Z87.891 Personal history of nicotine dependence
CPT/HCPCS: 36415; 71046; 80053; 83605; 84484; 85025; 86140; 96361; 96374; 99284; 99285; A9270; J7120; J2919